=== PATIENT | male | born 1990 | race Caucasian/White ===

== ENCOUNTER 2023-10-20 16:20 | Emergency (ER) | payer OTHER ==
[2023-10-20 16:31] VITALS: TEMP 99.1; BMI 30.7
[2023-10-20] MEDS: LACTATED RINGERS SOLUTION 1,000 ML/1,000 ML INFUS.BAG IV STA (17:04)
[2023-10-20 17:08] LABS: BASO % 0.4 % (0-2.0); EOS % 1.1 % (0-4.5); HEMATOCRIT 49.6 % (35.4-49); HEMOGLOBIN 16.6 GM/dL (11.7-16.9); LYMPH % 25.2 % (8-40); MCH 32.2 pg (25.7-33.7); MCHC 33.5 g/dl (32.0-35.9); MEAN PLT VOLUME 8.8 fl (7.5-11.1); MONO % 10.6 % (3.8-10.2); NEUT % 62.7 % (42.8-82.8); PLATELET COUNT 282 10^3/uL (134-434); RBC 5.17 M/mm3 (4.00-5.60); RDW 13.1 % (11.9-15.9); WHITE BLOOD COUNT 9.4 K/mm3 (4.0-10.0)
[2023-10-20 17:34] LABS: POTASSIUM 3.8 mmol/L (3.5-5.1)
[2023-10-20 17:35] LABS: CALCIUM 9.9 mg/dL (8.5-10.1)
[2023-10-20 17:36] LABS: ALBUMIN 4.5 g/dl (3.4-5.0); BLOOD UREA NITROGEN 16.2 mg/dL (7-18)
[2023-10-20 17:39] LABS: CREATININE 1.2 mg/dL (0.55-1.3)
[2023-10-20 17:41] LABS: BILIRUBIN,TOTAL 0.5 mg/dL (0.2-1); TOT PROT 7.7 g/dl (6.4-8.2)
[2023-10-20 18:24] VITALS: BP 145/74; PULSE 74; RESP 18
== END 2023-10-20 18:24 | disposition home or self-care (01) ==
LOC: JERFT 16:20
PROC: 3E0337Z Introduction of Electrolytic and Water Balance Substance into Peripheral Vein, Percutaneous Approach (ICD-10-PCS; principal; 2023-10-20)
DX: S49.92XA Unspecified injury of left shoulder and upper arm, initial encounter (principal); X50.0XXA Overexertion from strenuous movement or load, initial encounter; Y92.009 Unspecified place in unspecified non-institutional (private) residence as the place of occurrence of the external cause
CPT/HCPCS: 36415; 71046-TC-FY; 73030-TC-LT-FY; 80053; 85025; 99284-25